=== PATIENT | female | born 1945 | race Caucasian/White ===

== ENCOUNTER → 2016-06-05 | Outpatient (CLI) | payer MEDICARE ==
--- NOTE | 2016-06-05 11:51 | MM ---
Reason for exam: follow-up at short interval from prior study. Last mammogram was performed 6 months ago. History: Patient is postmenopausal. Stereotactic core biopsy of the left breast, December 2014. Taking estrogen for 20 years. Physical Findings: Nurse did not find any significant physical abnormalities on exam. MG Diagnostic Mammo LT w CAD CC and MLO view(s) were taken of the left breast. Prior study comparison: December 06, 2015, bilateral MG 3d diag mammo w/cad AWA. December 13, 2014, left breast MG work up mamm w CAD LT. December 04, 2014, bilateral MG screening mammo w CAD. December 01, 2013, bilateral MG screening mammo w CAD. There are scattered fibroglandular densities. Finding #1: Architectural distortion in the left breast consistent with known excisional biopsy. Finding #2: There are typically benign round, regional calcifications in the left breast. These results were verbally communicated with the patient and result sheet given to the patient on 06/05/16. ASSESSMENT: Benign, BI-RAD 2 RECOMMENDATION: Routine screening mammogram of both breasts in 6 months. Back on schedule.
== END | disposition home or self-care (01) ==
LOC: RADMAMWWP 10:44
PROVIDERS: ATTEND Internal Medicine Sleep Medicine
DX: N60.02 Solitary cyst of left breast (principal)

== ENCOUNTER 2017-07-23 06:11 | Day surgery (SDC) | payer MEDICARE ==
[2017-07-22 11:39] VITALS: BMI 47.2
[2017-07-23] MEDS ORDERED: SODIUM CHLORIDE 0.9% 1,000 ML IV SCH (06:29)
[2017-07-23] MEDS ORDERED: LACTATED RINGERS 1,000 ML IV SCH (06:29)
[2017-07-23 07:00] VITALS: TEMP 97.9
[2017-07-23 07:22] LABS: Anion Gap 12 mmol/L; Calcium 9.4 mg/dL (8.4-10.2); Carbon Dioxide 26 mmol/L (22-30); Chloride 103 mmol/L (98-107); Glucose 100 mg/dL (74-99); Sodium 141 mmol/L (137-145)
[2017-07-23 07:23] LABS: Potassium 4.6 mmol/L (3.5-5.1)
[2017-07-23 07:24] LABS: Blood Urea Nitrogen 19 mg/dL (7-17)
[2017-07-23] MEDS ORDERED: PROPOFOL 10 MG/ML 20 ML VIAL IV ONE (07:24)
[2017-07-23] MEDS ORDERED: LIDOCAINE 1% INJ 10MG/ML (20 ML MDV) ONE (07:24)
--- NOTE | 2017-07-23 08:02 | CE ---
CARDIAC ELECTROPHYSIOLOGY REPORT DATE OF SERVICE: 07/23/2017 PROCEDURE: Electrical cardioversion. PERFORMED BY: Dr. True Ojeda. CLINICAL INFORMATION: Mrs. Natasha Porter is a 72-year-old lady with history of hypertension and atrial fib which was relatively recent onset. The rate control was achieved and she was started also on amiodarone and was adequately anticoagulated with Eliquis 5 mg b.i.d. and brought in for an elective electrical cardioversion. Risks, benefits, options and rationale were explained. PROCEDURE NOTE: Under the influence of ultra short-acting intravenous anesthetic agent with the anesthesiologist in attendance, an initial shock of 200 joules was delivered with anterior and posterior patches. The patient remained in atrial fib and a subsequent second shock was delivered at 250 joules. She did not convert to sinus rhythm. This was therefore an unsuccessful cardioversion. The patient was neurologically intact and hemodynamically stable with good oxygen saturation. The results were discussed with the patient and family. We will treat her with rate control and anticoagulation and she will be discharged later on today. Patient will be evaluated after she is up and about. Once she has ambulated and has had a meal she will be discharged. This was an unsuccessful cardioversion. MMODL / IJN: [id number] /
--- NOTE | 2017-07-23 08:08 | CE ---
CARDIAC ELECTROPHYSIOLOGY REPORT July 23, [address] Amato: Thank you for the opportunity to participate in the care of Mrs. Natasha Porter. This lady had electrical cardioversion which was unsuccessful. We will therefore pursue rate control and anticoagulation. Thank you for your referral and please call for questions. With kindest regards. Sincerely yours, MD ALEJANDRO Juarez / JOSEPHN: [id number] /
[2017-07-23 08:16] VITALS: RESP 18
[2017-07-23 08:40] VITALS: BP 143/69
[2017-07-23 09:07] VITALS: PULSE 70
--- NOTE | 2017-07-23 10:50 | LTR ---
July 23, [address] Amato: Thank you for the opportunity to participate in the care of Mrs. Natasha Porter. This lady had electrical cardioversion which was unsuccessful. We will therefore pursue rate control and anticoagulation. Thank you for your referral and please call for questions. With kindest regards. Sincerely yours, MD ALEJANDRO Juarez / SAMMIE: [id number] /
== END 2017-07-23 09:40 | disposition home or self-care (01) ==
LOC: CATHCVL 06:11
PROVIDERS: ATTEND Internal Medicine Interventional Cardiology
DX: I48.91 Unspecified atrial fibrillation (principal); I10 Essential (primary) hypertension; E03.9 Hypothyroidism, unspecified; Z79.899 Other long term (current) drug therapy; L30.9 Dermatitis, unspecified; Z79.01 Long term (current) use of anticoagulants; Z79.890 Hormone replacement therapy; Z82.49 Family history of ischemic heart disease and other diseases of the circulatory system
CPT/HCPCS: 92960; 80048; J2001; J2704

== ENCOUNTER → 2018-01-21 | Outpatient (CLI) | payer MEDICARE ==
--- NOTE | 2018-01-21 11:55 | CONS ---
CONSULTATION DATE OF SERVICE: 01/21/2018 A 72-year-old lady who has been evaluated in the [facility] for possible obstructive sleep apnea-hypopnea syndrome. HISTORY OF PRESENT ILLNESS/SLEEP-WAKE EVALUATION: Patient usual sleep schedule from around 9 p.m. until 4- 5 a.m. Usually no problems with falling asleep. No TV in bedroom. Patient usually sleeps with her on the side position. According to her she snores and she wakes up from sleep around 1 am for the nocturia and then she goes back to bed and falling asleep again. During the day she may fall asleep, she takes 1 nap afternoon with 2 caffeinated beverages during the day. [place] Sleepiness Scale is 5. PAST MEDICAL HISTORY: Positive for atrial fibrillation diagnosed in May of 2017 after the patient underwent several cardiac ablation procedures, but continued to have atrial fibrillation. Cardiac cath is negative for coronary artery disease. Hypertension, hypothyroidism, history of iron deficiency in the past. PAST SURGICAL HISTORY: Total hysterectomy, cholecystectomy. MEDICATIONS: Metoprolol, Eliquis, losartan with hydrochlorothiazide, flaxseed oral, Premarin, Synthroid, calcium supplement. SOCIAL HISTORY: Negative for smoking or using alcohol. FAMILY HISTORY: Hypertension, heart problems, snoring, thyroid problems. PHYSICAL EXAM: During physical exam, a lady without distress. BP 129/81, HR 87, RR 16, height 5, 4, weight 278.4, body mass index 47.5, temperature 97.4, oxygen saturation at room 97%. OROPHARYNX: Short distance between soft palate and posterior pharyngeal wall, vertically position of soft palate practically normal. HEART: S1, S2 irregular, regular. ABDOMEN: Obese. Neck Supple, no JVD. Thyroid is not palpable. LUNGS Clear to percussion and to auscultation. Good air exchange. No wheezing or rhonchi. EXTREMITIES No clubbing or cyanosis. [employer] Awake, alert, and oriented X3. Cranial nerves 2 to 7 intact. There is no fasciculation or atrophy. noted. No focal deficits observed. IMPRESSION: 1. Snoring, awakenings from sleep with nocturia, short distance between soft palate and posterior pharyngeal wall, obesity. Patient takes naps in the afternoon; possible obstructive sleep apnea-hypopnea syndrome. 2. Obesity, body mass index 47.5. 3. Atrial fibrillation. Patient continued to have atrial fibrillation after several cardiac ablation procedures. 4. Hypertension. 5. Hypothyroidism. 6. History of iron deficiency in the past. 7. Status post total hysterectomy. 8. Status post cholecystectomy. 9. History of chronic dermatitis. PLAN: 1. Polysomnography for evaluation of patient's breathing during sleep. 2. CPAP/BiPAP titration if sleep study confirms obstructive sleep apnea-hypopnea syndrome. 3. Preferable position during sleep on the side. 4. No driving if patient feels any sleepiness. 5. I will see patient for follow up visit to explain results of testing and following plan. Thank you very much for referring this patient for consultation. Sincerely, Olvin Wilder MD, PhD, FAASM Diplomat of [place] [employer] [place] [employer] Super[employer] [facility] [place] MMODL / IJN: [id number] /
== END | disposition home or self-care (01) ==
LOC: SLEEP 10:24
PROVIDERS: ATTEND Internal Medicine
DX: R06.83 Snoring (principal); E66.9 Obesity, unspecified; I48.91 Unspecified atrial fibrillation; I10 Essential (primary) hypertension; E03.9 Hypothyroidism, unspecified; Z68.42 Body mass index [BMI] 45.0-49.9, adult; Z90.49 Acquired absence of other specified parts of digestive tract; Z90.710 Acquired absence of both cervix and uterus; Z87.2 Personal history of diseases of the skin and subcutaneous tissue; Z79.01 Long term (current) use of anticoagulants; Z79.899 Other long term (current) drug therapy
CPT/HCPCS: 99211

== ENCOUNTER 2018-04-12 11:28 | Inpatient (IN) | payer MEDICARE ==
[2018-04-12 17:13] LABS: Basophils # (A) 0.1 k/uL (0-0.2); Basophils % (A) 1 %; Eosinophils # (A) 0.1 k/uL (0-0.7); Eosinophils % (A) 1 %; HCT 41.7 % (34.0-46.0); HGB 13.7 gm/dL (11.4-16.0); Lymphocytes # (A) 2.6 k/uL (1.0-4.8); Lymphocytes % (A) 26 %; MCH 32.1 pg (25.0-35.0); MCHC 32.9 g/dL (31.0-37.0); MCV 97.4 fL (80.0-100.0); Mean Platelet Volume 8.5; Monocytes # (A) 0.5 k/uL (0-1.0); Monocytes % (A) 5 %; Neutrophils # (A) 6.6 k/uL (1.3-7.7); Neutrophils % (A) 65 %; Platelet Count 253 k/uL (150-450); RBC 4.28 m/uL (3.80-5.40); RDW 13.2 % (11.5-15.5); WBC 10.1 k/uL (3.8-10.6)
[2018-04-12 17:19] LABS: Prothrombin Time 10.6 sec (9.0-12.0)
[2018-04-12] MEDS ORDERED: MAGNESIUM SULFATE-D5W PMX 1 GM in DEXTROSE/WATER 1 100ML.BAG IVPB ONE (17:22)
[2018-04-12 17:24] LABS: Anion Gap 6 mmol/L; Blood Urea Nitrogen 16 mg/dL (7-17); Calcium 9.4 mg/dL (8.4-10.2); Carbon Dioxide 30 mmol/L (22-30); Chloride 103 mmol/L (98-107); Glucose 90 mg/dL (74-99); Magnesium 1.7 mg/dL (1.6-2.3); Potassium 4.5 mmol/L (3.5-5.1); Sodium 139 mmol/L (137-145)
[2018-04-12] MEDS ORDERED: DOFETILIDE 250 MCG CAP PO ONE (18:00)
[2018-04-12] MEDS: SPIRONOLACTONE 25 MG TAB PO SCH (18:32)
--- NOTE | 2018-04-12 18:35 | P.HPCAR ---
History of Present Illness This is Dr. Andres dictating an admission note on this patient The patient was interviewed and examined by me IMPRESSION / ASSESSMENT: Symptomatic persistent atrial fibrillation Failed treatment with amiodarone and electrical cardioversion the past Amiodarone has been discontinued for several months now Cardio myopathy, globally reduced LV systolic function, left ventricle ejection fraction 45% Creatinine clearance of 60 Increased BMI Hypertension Never smoker Low magnesium levels currently and in the past PLAN: Initiation of dofetilide as an inpatient, 250 g twice daily and follow dofetilide protocol with ECGs and daily BMP and magnesium A. fib ablation/pulmonary vein isolation IV magnesium 1 dose today Spironolactone 25 mg by mouth daily and I will increase it further to 50 g by mouth daily Hydrochlorothiazide has been discontinued almost 5 to 7 days back Continue losartan Continue metoprolol Continue the ELIQUIS uninterrupted, 5 mg twice daily HPI Patient complains of tiredness and fatigue and lack of energy. She does have a history of sleep apnea and uses CPAP mask She has reduced LV systolic function during atrial fibrillation and she has failed electrical cardioversion in the past Amiodarone was discontinued several months back She is undergone coronary angiography and am awaiting the report from [facility] ROS: No fever chills or rigors, no cough, phlegm or expectoration, no nausea, vomiting or diarrhea, no hematuria, dysuria, no musculoskeletal complaints, no strokes or seizures, no skin lesions. EXAMINATION: Afebrile 97.8F, pulse rate in the 60s, blood pressure 120/85 mmHg Breath sounds are reduced bilaterally Mild kyphosis Heart sounds are irregular no murmurs or gallops or rub Abdomen is soft nontender Extremities are warm no edema REVIEW OF LABS, ECG & MEDICAL DATA Creatinine clearance 60 Hemoglobin 13.7, potassium 4.5, magnesium 1.7 Twelve-lead ECG shows atrial fibrillation with a controlled ventricular response absolute QT interval of less than 420 ms Physical Exam Vitals: Vital Signs Temp Pulse Resp BP Pulse Ox 04/12/18 16:00 97.8 F 65 18 120/85 96 Intake and Output 04/12/18 04/12/18 04/12/18 06:59 14:59 22:59 Intake Total 360 Balance 360 Intake: Oral 360 Other: Weight 129 kg Past Medical History Past Medical History: Hypertension, Skin Disorder, Thyroid Disorder Additional Past Medical History / Comment(s): Atopic Dermatitis, "heart skipping beats, I had no idea, don't feel anything." History of Any Multi-Drug Resistant Organisms: None Reported Past Surgical History: Cholecystectomy, Hysterectomy Additional Past Surgical History / Comment(s): Fatty tumor removed from left breast Past Anesthesia/Blood Transfusion Reactions: Postoperative Nausea & Vomiting ( PONV) Past Psychological History: No Psychological Hx Reported Smoking Status: Never smoker Past Alcohol Use History: None Reported Past Drug Use History: None Reported - Past Family History Son(s) Family Medical History: Cancer Additional Family Medical History / Comment(s): Brain cancer Physical Examination Vital Signs Temp Pulse Resp BP Pulse Ox 04/12/18 16:00 97.8 F 65 18 120/85 96 Intake and Output 04/12/18 04/12/18 04/12/18 06:59 14:59 22:59 Intake Total 360 Balance 360 Intake: Oral 360 Other: Weight 129 kg Results 04/12/18 16:59 04/12/18 16:59 Coagulation 04/12/18 Range/Units 16:59 PT 10.6 (9.0-12.0) sec CBC 04/12/18 Range/Units 16:59 WBC 10.1 (3.8-10.6) k/uL RBC 4.28 (3.80-5.40) m/uL Hgb 13.7 (11.4-16.0) gm/dL Hct 41.7 (34.0-46.0) % Plt Count 253 (150-450) k/uL Comprehensive Metabolic Panel 04/12/18 Range/Units 16:59 Sodium 139 (137-145) mmol/L Potassium 4.5 (3.5-5.1) mmol/L Chloride 103 (98-107) mmol/L Carbon Dioxide 30 (22-30) mmol/L BUN 16 (7-17) mg/dL Creatinine 0.74 (0.52-1.04) mg/dL Glucose 90 (74-99) mg/dL Calcium 9.4 (8.4-10.2) mg/dL Current Medications Generic Name Dose Route Start Last Admin Trade Name Freq PRN Reason Stop Dose Admin Apixaban 5 mg 04/12/18 21:00 Eliquis PO BID SARA Levothyroxine Sodium 125 mcg 04/12/18 21:00 Synthroid PO HS SARA Losartan Potassium 100 mg 04/13/18 09:00 Cozaar PO DAILY [facility] Magnesium Oxide 400 mg 04/13/18 15:00 Mag-Ox PO DAILY@1500 [facility] Metoprolol Tartrate 25 mg 04/13/18 12:00 Lopressor PO DAILY@1200 [facility] Metoprolol Tartrate 50 mg 04/12/18 21:00 Lopressor PO BID@0900,2100 [facility] Nystatin 1 applic 04/12/18 21:00 Mycostatin Powder TOPICAL BID [facility] Spironolactone 25 mg 04/12/18 18:00 04/12/18 18:32 Aldactone PO 25 mg DAILY [facility] Administration Intake and Output 04/12/18 04/12/18 04/12/18 06:59 14:59 22:59 Intake Total 360 Balance 360 Intake: Oral 360 Other: Weight 129 kg Patient Weight 04/13/18 06:59 Weight 129 kg 04/12/18 16:59 04/12/18 16:59
[2018-04-12] MEDS ORDERED: SODIUM CHLORIDE 0.9% 1,000 ML IV SCH (18:45)
[2018-04-12] MEDS: APIXABAN 5 MG TAB PO SCH (21:03)
[2018-04-12] MEDS: METOPROLOL TARTRATE 50 MG TAB PO SCH (21:03)
[2018-04-12] MEDS: LEVOTHYROXINE 125 MCG TAB PO SCH (21:03)
[2018-04-12] MEDS: NYSTATIN 100,000 UNIT/GM POWD 15 GM TOPICAL SCH (22:51)
[2018-04-13] MEDS ORDERED: DOFETILIDE 250 MCG CAP PO ONE (06:00)
[2018-04-13 06:05] LABS: Glucose,Whole Blood 92 mg/dL (75-99)
[2018-04-13 06:31] LABS: Anion Gap 8 mmol/L; Blood Urea Nitrogen 16 mg/dL (7-17); Calcium 8.9 mg/dL (8.4-10.2); Carbon Dioxide 26 mmol/L (22-30); Chloride 103 mmol/L (98-107); Glucose 91 mg/dL (74-99); Magnesium 1.8 mg/dL (1.6-2.3); Potassium 4.5 mmol/L (3.5-5.1); Sodium 137 mmol/L (137-145)
[2018-04-13] MEDS: APIXABAN 5 MG TAB PO SCH ×2 (09:33→20:18)
[2018-04-13] MEDS: LOSARTAN 50 MG TAB PO SCH (09:33)
[2018-04-13] MEDS: METOPROLOL TARTRATE 50 MG TAB PO SCH ×2 (09:34→20:17)
[2018-04-13] MEDS: SPIRONOLACTONE 25 MG TAB PO SCH (09:36)
[2018-04-13] MEDS: NYSTATIN 100,000 UNIT/GM POWD 15 GM TOPICAL SCH ×2 (09:37→22:32)
[2018-04-13] MEDS ORDERED: ePHEDrine SULFATE/0.9% NACL/PF 50 MG/5 ML SYRINGE IV ONE (14:15)
[2018-04-13] MEDS ORDERED: PROTAMINE SULFATE 10 MG/ML 5 ML VIAL IV ONE (14:15)
[2018-04-13] MEDS ORDERED: LIDOCAINE 1% INJ 10MG/ML (20 ML MDV) ONE (14:15)
[2018-04-13] MEDS ORDERED: SUCCINYLCHOLINE CHLORIDE 100 MG/5 ML SYR IV ONE (14:15)
[2018-04-13] MEDS ORDERED: MIDAZOLAM 2 MG/2 ML VIAL ONE (14:15)
[2018-04-13] MEDS ORDERED: PROPOFOL 10 MG/ML 20 ML VIAL IV ONE (14:15)
[2018-04-13] MEDS ORDERED: fentaNYL (PF) 50 MCG/ML 2 ML AMP ONE (14:15)
[2018-04-13] MEDS ORDERED: HEPARIN SODIUM,PORCINE 10,000 UNIT/ML 1 ML VIAL ONE (14:15)
[2018-04-13] MEDS ORDERED: MAGNESIUM OXIDE 400 MG TAB PO SCH (15:00)
[2018-04-13] MEDS ORDERED: HYDROcodone/APAP 5-325MG 1 EACH TAB PO PRN (17:42)
[2018-04-13] MEDS ORDERED: ACETAMINOPHEN TAB 325 MG TAB PO PRN (17:42)
[2018-04-13] MEDS ORDERED: ACETAMINOPHEN IV (For NPO) 1,000 MG in EMPTY BAG 1 BAG IVPB ONE (17:42)
--- NOTE | 2018-04-13 18:06 | P.PCN ---
Preoperative Diagnosis: Diagnosis Atrial fibrillation, persistent, symptomatic, refractory to therapy Result Successful pulmonary vein isolation of all veins using cryo-ablation Complete entrance block in all 4 veins confirmed No evidence for phrenic nerve injury Ablation of the interatrial septum on the left side, Esophageal deflection YES Electrical cardioversion with a synchronized shock across the chest YES 360 J biphasic, successful Procedure details Patient was brought to the EP lab in a fasting state. Written informed consent was obtained prior to the procedure. Procedure performed under general anesthesia After initial muscle relaxant use, muscle relaxants were not given thereafter in order to assess phrenic nerve during procedure. Patient prepped and draped as per protocol Full cryo-set up with standard preparation of the cryoablation tools done. Femoral Venous access obtained on the right and left groins Venous and arterial Sheaths placed. Diagnostic catheters for the high right atrium, phrenic nerve stimulation and pacing, His bundle, RV and coronary sinus placed Intracardiac echo catheter placed. Long sheath placed in the right atrium Left and right transseptal catheterization performed under intracardiac echo guidance. Intravenous heparin with aCT above 300 Later, catheter positioning and balloon positioning in the left atrium, under intracardiac echo guidance Baseline measurements Sinus cycle length 1248 ms, FL 151, QRS 76 and QT interval greater than 500 ms HV interval 30 ms Atrial pacing performed from the high right atrium and the coronary sinus RV pacing Transseptal catheterization performed RA pressure 26/10/18 LA pressure 30/8/17 Transseptal catheterization performed with standard sheath. The cryoablation sheath was then placed with an over the wire exchange without any acute complications. All 4 pulmonary veins were isolated in the following sequence: Left superior followed by left inferior followed by right superior followed by right inferior The cryo-ablation balloon was placed at the os of each vein 1.5 mL of IV dye was injected to confirm an occluded vein Goal during cryoablation was to achieve complete occlusion of the pulmonary vein , achieve -30C at 30 seconds and achieve -40C at 60 seconds and a time to affect of less than 60-90 seconds, . If not the balloon was repositioned to obtain this result After completion of Cryoblation with durations from 180-240 seconds, entrance block was confirmed with the Attain circular catheter in a roving fashion around the antrum of the pulmonary veins Phrenic nerve pacing was performed from the SVC, right innominate vein area and diaphragm voltage was monitored. Diaphragmatic contractions were also monitored manually for strength of contraction. Parameter goals for each cryo freeze -30 C by 30 seconds -40 degrees C by 60 seconds Minimum between minus 40-55C Thaw time greater than 10 seconds Balloon visualized by intracardiac echo The esophagus was intubated. Esophageal Temperature monitoring with a CIRCA catheter formed. Esophageal deflection for hypothermia of the esophagus below 32C Left superior pulmonary vein and Left inferior pulmonary veins The patient had a very large common and left sided pulmonary venous os region bifurcated into a very large left superior and left inferior pulmonary veins The common loss and even the veins were larger in diameter in the 28 mm cryo balloon used. Therefore the ostium was isolated at an antral level, in a segmental fashion Brief Cryoblation's were also applied within the ostium of the pulmonary vein Complete isolation was achieved in the pulmonary veins Cryoablation was also performed on the left side of the roof outside the left superior pulmonary vein Right superior pulmonary vein, during phrenic nerve pacing Three-minute lesion resultant complete isolation within less than 60 seconds Right inferior pulmonary vein, during phrenic nerve pacing Difficult positioning of the balloon on account of the large size of the right inferior pulmonary vein However plate isolation was ultimately achieved At the end of the procedure the Achieve catheter was once again used to check for entrance block Phrenic nerve stimulation was performed to confirm diaphragmatic stimulation the end of the procedure Cine fluoroscopy was performed at the very end of the procedure to confirm movement of both diaphragms with inspiration and expiration At the end of the procedure the patient was extubated Heparin was reversed Venous sheaths were removed and hemostasis assured Procedures performed (PVI - CRYO Ablation) Comprehensive diagnostic EP study CS pacing and recording Left and right transseptal catheterization Catheter the mapping of the tachycardia (NOT 3D mapping) Intracardiac echocardiography Pulmonary vein isolation with transseptal and comprehensive EPS, 36815 Electrical cardioversion with a synchronized shock across the chest 40402 Ablation of the left-sided septum near fossa ovalis and right inferior pulmonary vein, 87016
[2018-04-13] MEDS: METOPROLOL TARTRATE 25 MG TAB PO SCH (19:51)
[2018-04-13] MEDS: MAGNESIUM OXIDE 400 MG TAB PO SCH (20:17)
[2018-04-13] MEDS: LEVOTHYROXINE 125 MCG TAB PO SCH (20:18)
[2018-04-14] MEDS ORDERED: DOFETILIDE 125 MCG CAP PO ONE ×2 (06:00→18:00)
[2018-04-14 06:22] LABS: Anion Gap 6 mmol/L; Blood Urea Nitrogen 16 mg/dL (7-17); Calcium 8.8 mg/dL (8.4-10.2); Carbon Dioxide 28 mmol/L (22-30); Chloride 103 mmol/L (98-107); Glucose 101 mg/dL (74-99); Magnesium 1.9 mg/dL (1.6-2.3); Potassium 4.6 mmol/L (3.5-5.1); Sodium 137 mmol/L (137-145)
[2018-04-14] MEDS: METOPROLOL TARTRATE 50 MG TAB PO SCH ×2 (09:12→20:35)
[2018-04-14] MEDS: SPIRONOLACTONE 25 MG TAB PO SCH (09:12)
[2018-04-14] MEDS: APIXABAN 5 MG TAB PO SCH ×2 (09:13→20:35)
[2018-04-14] MEDS: MAGNESIUM OXIDE 400 MG TAB PO SCH ×2 (09:13→20:35)
[2018-04-14] MEDS: LOSARTAN 50 MG TAB PO SCH (09:13)
--- NOTE | 2018-04-14 10:53 | P.PN ---
Subjective Principal diagnosis: Patient is doing well post cryoablation of the pulmonary veins She has a large left common os. The common trunk is long but its diameter is significantly greater than 3 cm. The ostium of the right superior vein was also greater than 28 mm The left ostium, common, was successfully isolated with a segmental and circumferential cryoablation approach. Atrial fibrillation is in induced when the circumferential catheter was placed in the left inferior pulmonary vein ostium She also had a very large right inferior pulmonary vein was also ultimately successfully isolated The right superior vein was expeditiously isolated She denies any chest discomfort dizziness lightheadedness or palpitations today I removed the sutures groins healing well. No hematoma no bruits On examination Blood pressure 170/67 mmHg pulse rate in the 70s, afebrile Breath sounds are clear no rhonchi no crackles Heart sounds S1-S2 normal no murmurs or gallop or rub Abdomen is soft nontender No lower extremity edema Impression Persistent symptomatically atrial fibrillation associated with cardio myopathy Patient admitted for dofetilide loading. I initiated 250 g of dofetilide and she converted to sinus rhythm with a very first dose but there was prolongation of the QT interval to about 510 ms. I held dofetilide last evening and restarted at 125 g. The follow-up 3 hour ECG shows that the QT interval is stable at 430 ms. It is clearly less than 440 ms Magnesium is 1.9. I had increased dose of spironolactone and also oral magnesium Status post cryoablation of the pulmonary veins LV function in sinus rhythm, on intracardiac echo appeared preserved Suggest Continue monitoring on telemetry, dofetilide 125 g twice daily and watch QT interval Continue anticoagulation Avoid additional QT prolonging drugs Discussed with the patient Objective - Vital Signs Vital signs: Vital Signs Temp 97.8 F 04/14/18 09:19 Pulse 74 04/14/18 09:19 Resp 18 04/14/18 09:19 BP 117/67 04/14/18 09:19 Pulse Ox 98 04/14/18 09:19 Intake & Output 04/13/18 04/14/18 04/14/18 18:59 06:59 18:59 Intake Total 10 Balance 10 Weight 128.2 kg Intake: IV 10 0.9 10 Other: Voiding Method Toilet Toilet # Voids 1 3 - Labs CBC & Chem 7: 04/12/18 16:59 04/14/18 05:40 Labs: Abnormal Lab Results - Last 24 Hours (Table) 04/14/18 Range/Units 05:40 Glucose 101 H (74-99) mg/dL
[2018-04-14] MEDS: METOPROLOL TARTRATE 25 MG TAB PO SCH (12:36)
[2018-04-14] MEDS: NYSTATIN 100,000 UNIT/GM POWD 15 GM TOPICAL SCH ×2 (16:07→20:35)
[2018-04-14] MEDS ORDERED: MAGNESIUM SULFATE-D5W PMX 1 GM in DEXTROSE/WATER 1 100ML.BAG IVPB ONE (18:16)
[2018-04-14] MEDS: LEVOTHYROXINE 125 MCG TAB PO SCH (20:35)
[2018-04-15] MEDS ORDERED: DOFETILIDE 125 MCG CAP PO STA ×3 (05:19→18:58)
[2018-04-15 07:03] LABS: Anion Gap 7 mmol/L; Blood Urea Nitrogen 15 mg/dL (7-17); Calcium 9.2 mg/dL (8.4-10.2); Carbon Dioxide 27 mmol/L (22-30); Chloride 105 mmol/L (98-107); Glucose 95 mg/dL (74-99); Magnesium 1.7 mg/dL (1.6-2.3); Potassium 4.5 mmol/L (3.5-5.1); Sodium 139 mmol/L (137-145)
[2018-04-15] MEDS: APIXABAN 5 MG TAB PO SCH ×2 (09:09→22:13)
[2018-04-15] MEDS: METOPROLOL TARTRATE 50 MG TAB PO SCH ×2 (09:09→22:13)
[2018-04-15] MEDS: LOSARTAN 50 MG TAB PO SCH (09:09)
[2018-04-15] MEDS: MAGNESIUM OXIDE 400 MG TAB PO SCH ×2 (09:09→22:13)
[2018-04-15] MEDS: SPIRONOLACTONE 25 MG TAB PO SCH (09:09)
[2018-04-15] MEDS: NYSTATIN 100,000 UNIT/GM POWD 15 GM TOPICAL SCH ×2 (09:11→22:13)
[2018-04-15] MEDS ORDERED: DUPIXENT SQ ONE (13:00)
--- NOTE | 2018-04-15 14:12 | P.PN ---
Subjective Patient is doing well she looks comfortable she has no dizziness lightheadedness no chest pain she does ambulate in the hallways groins have healed well there is no hematoma no swelling she remains in sinus rhythm on dofetilide 125 g twice daily I reviewed the ECG from last evening and this morning post dofetilide administration Absolute QT interval 440 ms Labs reviewed telemetry strips reviewed no ventricular arrhythmias no atrial fibrillation She is status post cryoablation of the pulmonary veins with a very large left common os Potassium 4.5, kidney function stable BUN 15 creatinine 0.68 and magnesium 1.7 despite spironolactone 50 mg daily multiple dose of IV magnesium and oral magnesium Vitals are stable afebrile 98.3F, blood pressure 123/57 mmHg pulse rate in the 70s Head and neck examination normal Normal heart sounds normal S1 normal S2 no rub Breath sounds are clear no rhonchi no cracklesair entry bilaterally on account of body habitus Abdomen soft Extremities are warm No hematoma tenderness in both groins Impression Persistent symptomatic atrial fibrillation associated with cardiomyopathy, A. fib related, nonischemic Improvement in LV systolic function while in sinus rhythm Status post successful isolation of the pulmonary veins of cryoablation Very large left common loss size much greater than 3 cm. Even the ostia of both the left-sided veins were larger than 28 mm Very large right inferior pulmonary vein Pulmonary veins were isolated circumferentially and segmentally Dofetilide was initiated initially at 250 g but there was prolongation of the QT interval will although she converted with the first dose of dofetilide Since then she's been on 125 g twice daily and the QT interval has been stable and on the 440 ms Suggest Reduce metoprolol to 50 g twice daily Oral magnesium dose has been doubled Spironolactone 50 mg by mouth daily Continue anticoagulation If the QT interval is stable she will be discharged home tomorrow and follow Dr. Ojeda in a week I will see her again in about 4-5 months for dofetilide follow-up Objective - Vital Signs Vital signs: Vital Signs Temp 98.3 F 04/15/18 12:00 Pulse 72 04/15/18 12:00 Resp 20 04/15/18 12:00 BP 123/57 04/15/18 12:00 Pulse Ox 94 L 04/15/18 12:00 Intake & Output 04/14/18 04/15/18 04/15/18 18:59 06:59 18:59 Intake Total 840 250 Balance 840 250 Weight 128.5 kg Intake: IV 10 0.9 10 Oral 840 240 Other: Voiding Method Toilet # Voids 1 3 # Bowel Movements 0 - Labs CBC & Chem 7: 04/12/18 16:59 04/15/18 05:47
[2018-04-15] MEDS: LEVOTHYROXINE 125 MCG TAB PO SCH (22:13)
[2018-04-16] MEDS ORDERED: DOFETILIDE 125 MCG CAP PO ONE (05:30)
[2018-04-16 07:07] LABS: Anion Gap 5 mmol/L; Blood Urea Nitrogen 14 mg/dL (7-17); Calcium 9.5 mg/dL (8.4-10.2); Carbon Dioxide 28 mmol/L (22-30); Chloride 105 mmol/L (98-107); Glucose 94 mg/dL (74-99); Magnesium 1.5 mg/dL (1.6-2.3); Potassium 4.7 mmol/L (3.5-5.1); Sodium 138 mmol/L (137-145)
[2018-04-16] MEDS: APIXABAN 5 MG TAB PO SCH (08:33)
[2018-04-16] MEDS: METOPROLOL TARTRATE 50 MG TAB PO SCH (08:34)
[2018-04-16] MEDS: LOSARTAN 50 MG TAB PO SCH (08:34)
[2018-04-16] MEDS: MAGNESIUM OXIDE 400 MG TAB PO SCH (08:34)
[2018-04-16] MEDS: SPIRONOLACTONE 25 MG TAB PO SCH (08:35)
[2018-04-16] MEDS: NYSTATIN 100,000 UNIT/GM POWD 15 GM TOPICAL SCH (08:40)
[2018-04-16] MEDS ORDERED: ceFAZolin 2,000 MG in DEXTROSE/WATER 1 50ML.BAG IVPB STA (09:41)
[2018-04-16] MEDS ORDERED: ceFAZolin IN SWFI 2 GM/20 ML SYRINGE IVP STA (09:46)
[2018-04-16 10:18] VITALS: RESP 18
[2018-04-16 11:55] VITALS: BP 130/71; PULSE 75; TEMP 97.6
--- NOTE | 2018-04-16 13:02 | P.DS ---
Providers Date of admission: 04/12/18 14:08 Attending physician: Shubham Andres Primary care physician: Saúl Lara Eleanor Slater Hospital Course: Patient is doing very well. She is sitting comfortably in bed. She's been ablating the hallways. She has recovered very well after the pulmonary vein isolation. She is maintaining sinus rhythm now No chest discomfort dizziness lightheadedness no headache or dizziness no palpitations groins of healed well afebrile throat is improved On examination vitals are stable blood pressure 130/71 mmHg pulse rate in the 70s afebrile 97.6F Normal heart sounds are normal S1 normal S2 Breath sounds are clear no rhonchi no crackles Abdomen is soft nontender Groins have healed well no hematoma Extended is warm no edema Labs are reviewed sodium 138 potassium 4.7 BUN 14 creatinine 0.63 GFR greater than 90 magnesium 1.5 despite oral magnesium as well as IV magnesium Twelve-lead ECG on dofetilide was reviewed. 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 Failed amiodarone in the past and has discontinued amiodarone for several months now new appropriate regulated elevated JERRY VASC or Status post cryoablation of the pulmonary veins Very large left common os and even individual pulmonary venous os were larger than the 28th millimeter balloon Isolation of all veins successful Prolonged QT interval on 250 g of dofetilide Currently on dofetilide 125 g twice daily QT interval stable Plan Discharge home today on anticoagulation dofetilide 125 g twice daily spironolactone 50 g by mouth daily double the dose of oral magnesium, hydroxide 400 mg twice daily, reduced dose of metoprolol of 50 g twice daily and other medications Add a very detailed discussion with her regarding the dose and don'ts of dofetilide use. I went through the entire education protocol/process and explained the entire dofetilide plan to her in detail. I had her on the phone on speaker phone. She understood the issues with dofetilide and how to manage it She will see Dr. Ojeda in about 1-2 weeks I would like to see her again in about 3-4 months She understands that she will see me at least twice a year for dofetilide. Prior BMP and magnesium will be performed and an EKG at that time to check QT interval prior to prescribing dofetilide in the future Plan - Discharge Summary New Discharge Prescriptions: New Cephalexin [Keflex] 500 mg PO TID #21 cap Dofetilide [Tikosyn] 125 mcg PO Q12HR #60 cap Magnesium Oxide [Mag-Ox] 400 mg PO BID #60 tablet RX: Spironolactone 50 mg PO DAILY #30 tablet RX: Metoprolol Tartrate [Lopressor] 50 mg PO BID #180 tab Discontinued RX: Metoprolol Tartrate 25 mg PO DAILY@1200 RX: Magnesium 750 mg PO DAILY@1500 Metoprolol Tartrate [Lopressor] 50 mg PO BID@0900,2100 No Action RX: Folic Acid 0.4 mg PO DAILY@1500 Apixaban [Eliquis] 5 mg PO BID RX: Levothyroxine Sodium 125 mcg PO HS Estrogens, Conjugated [Premarin] 1.25 mg PO HS Calcium Carbonate [Calcium] 1,200 mg PO HS Dupilumab [Dupixent] 300 mg SQ TH Flaxseed Oil 1,200 mg PO DAILY Ascorbic Acid [Vitamin C] 500 mg PO DAILY@1500 Losartan [Cozaar] 100 mg PO DAILY Discharge Medication List Apixaban [Eliquis] 5 mg PO BID 07/22/17 [History] Calcium Carbonate [Calcium] 1,200 mg PO HS 07/22/17 [History] Dupilumab [Dupixent] 300 mg SQ TH 07/22/17 [History] Estrogens, Conjugated [Premarin] 1.25 mg PO HS 07/22/17 [History] RX: Folic Acid 0.4 mg PO DAILY@1500 07/22/17 [History] RX: Levothyroxine Sodium 125 mcg PO HS 07/22/17 [History] Ascorbic Acid [Vitamin C] 500 mg PO DAILY@1500 04/12/18 [History] Flaxseed Oil 1,200 mg PO DAILY 04/12/18 [History] Losartan [Cozaar] 100 mg PO DAILY 04/12/18 [History] Cephalexin [Keflex] 500 mg PO TID #21 cap 04/16/18 [Rx] Dofetilide [Tikosyn] 125 mcg PO Q12HR #60 cap 04/16/18 [Rx] Magnesium Oxide [Mag-Ox] 400 mg PO BID #60 tablet 04/16/18 [Rx] RX: Metoprolol Tartrate [Lopressor] 50 mg PO BID #180 tab 04/16/18 [Rx] RX: Spironolactone 50 mg PO DAILY #30 tablet 04/16/18 [Rx] Follow up Appointment(s)/Referral(s): Linnette Ojeda MD [STAFF PHYSICIAN] - 05/05/18 1:30 pm (Previous follow up appointment.) Saúl Amato MD [Primary Care Provider] - 04/20/18 1:30 pm (thursday) Patient Instructions/Handouts: Heart Healthy Diet (DC), Cardiac Ablation (DC) Activity/Diet/Wound Care/Special Instructions: Tikosyn copay is $13.50/mo One month of tikosyn and magnesium ready in [facility]. Express script RX needed for 3 month supply.
--- NOTE | 2018-04-20 08:46 | CDI ---
Documentation Clarification Form Date: 04/20/18 From: Angela Manny Hillary Mcdaniels, Communications Scientist Hours-8:30 am & 5 pm MJefry Admit Date: 04/12/2018 2:08:00 PM Patient Name: Natasha Porter Visit Number: [id number] Discharge Date: 04/16/2018 2:03:00 PM ATTENTION: The Clinical Documentation Specialists (CDI) and [facility] Coding Staff appreciate your assistance in clarifying documentation. Please respond to the clarification below the line at the bottom and electronically sign. The CDI & [facility] Coding staff will review the response and follow-up if needed. Please note: Queries are made part of the Legal Health Record. If you have any questions, please contact the author of this message via ITS. Dr. Shubham Andres Per DS, she developed thrombophlebitis in the forearm. Per nursing note on 04/16- IV removed yesterday from right wrist for redness to the site. 1 dose of IV Cephalosporin given and discharged home on oral Keflex. In your professional opinion, can you please clarify the cause of the thrombophlebitis? Due to IV Not due to IV Other, please specify Unable to determine due to iv MTDD
== END 2018-04-16 14:03 | disposition home or self-care (01) | DRG 274 ==
LOC: 3SCARD 14:08
PROVIDERS: ADMIT Internal Medicine Clinical Cardiac Electrophysiology; ATTEND Internal Medicine Clinical Cardiac Electrophysiology
PROC: 02583ZZ Destruction of Conduction Mechanism, Percutaneous Approach (ICD-10-PCS; principal; 2018-04-13)
PROC: 02K83ZZ Map Conduction Mechanism, Percutaneous Approach (ICD-10-PCS; 2018-04-13)
PROC: 4A023FZ Measurement of Cardiac Rhythm, Percutaneous Approach (ICD-10-PCS; 2018-04-13)
PROC: 4A0234Z Measurement of Cardiac Electrical Activity, Percutaneous Approach (ICD-10-PCS; 2018-04-13)
PROC: 5A2204Z Restoration of Cardiac Rhythm, Single (ICD-10-PCS; 2018-04-13)
PROC: B246ZZ4 Ultrasonography of Right and Left Heart, Transesophageal (ICD-10-PCS; 2018-04-13)
DX: I48.1 Persistent atrial fibrillation (principal); T80.1XXA Vascular complications following infusion, transfusion and therapeutic injection, initial encounter; I42.9 Cardiomyopathy, unspecified; I80.8 Phlebitis and thrombophlebitis of other sites; I45.81 Long QT syndrome; I10 Essential (primary) hypertension; G47.30 Sleep apnea, unspecified; M40.209 Unspecified kyphosis, site unspecified; E07.9 Disorder of thyroid, unspecified; L20.9 Atopic dermatitis, unspecified; Z79.01 Long term (current) use of anticoagulants; Z79.890 Hormone replacement therapy; Z79.899 Other long term (current) drug therapy; Z99.89 Dependence on other enabling machines and devices; Z90.710 Acquired absence of both cervix and uterus; Z90.49 Acquired absence of other specified parts of digestive tract; Z80.8 Family history of malignant neoplasm of other organs or systems; Y84.8 Other medical procedures as the cause of abnormal reaction of the patient, or of later complication, without mention of misadventure at the time of the procedure; Y92.230 Patient room in hospital as the place of occurrence of the external cause
CPT/HCPCS: 80048; 83735; 85025; 85610

== ENCOUNTER → 2018-04-22 | Outpatient (CLI) | payer MEDICARE ==
--- NOTE | 2018-04-22 13:39 | SFUN ---
SLEEP CENTER FOLLOW UP NOTE DATE OF SERVICE: 04/22/2018 This 72-year-old lady had been followed in the sleep center for treatment of obstructive sleep apnea-hypopnea syndrome. Recently patient had diagnostic sleep study and CPAP titration and I discussed results of sleep studies with patient in detail. Diagnostic sleep study showed moderate obstructive sleep apnea. Subsequently, patient was started on treatment with CPAP. Today is her first visit after she was started on treatment with CPAP. The patient is able to use equipment every night without significant problems related to mask fitting, pressure, humidification. According to her , she sleeps better. [place] Sleepiness Scale today is 10. I checked her CPAP unit and reading from her machine. The usage is 100% of the time. Usage more than 4 hours is 83% of the time, which is normal. Average usage is 5 hours and 6 minutes. CPAP pressure is 8 cm of water. Leak is . Apnea-hypopnea index only 1.5, which is normal range. About 10 days ago, the patient was hospitalized for new episodes of atrial fibrillation. MEDICATIONS: Tikosyn, metoprolol, spironolactone, Eliquis, vitamin C, calcium supplement, levothyroxine, losartan, . PHYSICAL EXAMINATION: During physical exam, patient in no distress. VITAL SIGNS: BP 123/83, HR 78, RR 16, weight 279, temp 97.6, oxygen saturation at room air 96%. HEENT: PERRLA, EOMI. Oropharynx low position of soft palate, Mallampati 3. NECK: Supple, no JVD. Thyroid is not palpable. LUNGS: Clear to percussion and to auscultation. Good air exchange. No wheezing or rhonchi. HEART: S1, S2 regular. ABDOMEN: Obese. EXTREMITIES No clubbing or cyanosis. Dermatitis changes of the skin on the left elbow. DITTO MACHINE OPERATOR: Awake, alert, and oriented X3. Cranial nerves 2 to 7 intact. There is no fasciculation or atrophy. noted. No focal deficits observed. IMPRESSION: 1. Moderate obstructive sleep apnea-hypopnea syndrome; apnea-hypopnea index 20.9 with oxygen desaturation to 88.3% on control with CPAP at 8 cm of water. The patient demonstrated great compliance with treatment benefitting from treatment. 2. History of atrial fibrillation by auscultation, normal at present time. 3. Hypertension. 4. Hypothyroidism. 5. History of iron deficiency in the past. 6. History of dermatitis. 7. Status post total hysterectomy. 8. Status post cholecystectomy. PLAN: 1. Patient will continue to use CPAP equipment every night for the whole night. 2. We will add chinstrap because possibly patient open her mouth during the sleep, which could be the reason for significant leak. 3. Losing weight. 4. Sleep hygiene with regular time in bed for at least 8 hours. 5. No driving if feeling any sleepiness. Thank you very much for allowing me to participate in management of your patient. Sincerely, Olvin Wilder MD, PhD, FAASM Diplomat of [employer] Land Conservation Specialist of [facility] [place] MMODL / IJN: [id number] /
== END | disposition home or self-care (01) ==
LOC: SLEEP 11:17
PROVIDERS: ATTEND Internal Medicine
DX: G47.33 Obstructive sleep apnea (adult) (pediatric) (principal); I48.91 Unspecified atrial fibrillation; I10 Essential (primary) hypertension; E03.9 Hypothyroidism, unspecified; Z99.89 Dependence on other enabling machines and devices; Z79.01 Long term (current) use of anticoagulants; Z79.899 Other long term (current) drug therapy; Z90.49 Acquired absence of other specified parts of digestive tract; Z90.710 Acquired absence of both cervix and uterus; Z87.2 Personal history of diseases of the skin and subcutaneous tissue; Z86.2 Personal history of diseases of the blood and blood-forming organs and certain disorders involving the immune mechanism

== ENCOUNTER → 2018-10-21 | Outpatient (CLI) | payer MEDICARE ==
--- NOTE | 2018-10-21 11:48 | PN ---
PROGRESS NOTE DATE OF SERVICE: 10/21/2018. A 73-year-old lady who has been followed in the Sleep Center for treatment of obstructive sleep apnea-hypopnea syndrome. Patient successfully continued to use her CPAP equipment every night without significant problems related to mask fitting, pressure or indication. No snoring with the machine. [place] Sleepiness Scale is 2, which is totally normal. No episodes of cardiac arrhythmia since last visit. I checked her CPAP unit. CPAP pressure is 8 cm of water. Usage is every night and 24/30 nights for more than 4 hours of the last month. Leak is 23 L/minute, which is borderline. Apnea-hypopnea index 0.9, which is absolutely normal. MEDICATIONS: Tikosyn, metoprolol, spironolactone, Eliquis, vitamin C, levothyroxine, losartan. PHYSICAL EXAM: Patient in no distress. BP 134/65, HR 70, RR 16, height 5 foot 3 inches, weight 286 pounds, body mass index 50.4. Patient increased her weight 7 pounds since last visit. Oxygen saturation at room air 95%. OROPHARYNX: Low position of soft palate. Mallampati 3. ABDOMEN: Obese. Neck Supple, no JVD. Thyroid is not palpable. LUNGS Clear to percussion and to auscultation. Good air exchange. No wheezing or rhonchi. HEART S1, S2 regular. No murmurs, gallops, or rubs. EXTREMITIES No clubbing or cyanosis. LIQUID SUGAR FORTIFIER Awake, alert, and oriented X3. Cranial nerves 2 to 7 intact. There is no fasciculation or atrophy. noted. No focal deficits observed. IMPRESSION: 1. Moderate obstructive sleep apnea-hypopnea syndrome on full control with CPAP. Patient demonstrated great compliance with treatment, benefitting from treatment. 2. History of atrial fibrillation, normal auscultation presently. 3. Hypertension. 4. Hypothyroidism. 5. History of iron deficiency in the past. 6. Psoriasis. 7. Status post total hysterectomy. 8. Status post cholecystectomy. PLAN: 1. Patient will continue to use CPAP equipment every night for the whole night. 2. Losing weight. 3. Sleep hygiene with regular time in bed for at least 8 hours. 4. No driving if feeling sleepiness. 5. Will maintain all necessary prescriptions for nasal pillow, mask, tube, filters. Thank you very much for allowing me to participate in the management of patient. Sincerely, Olvin Wilder MD, PhD, FAASM Diplomat of [place] [employer] Specialties [employer] Board of Internal Medicine Manager Of Network of [facility] [place] MMTINY / SAMMIE: [id number] /
== END | disposition home or self-care (01) ==
LOC: SLEEP 09:48
PROVIDERS: ATTEND Internal Medicine
DX: G47.33 Obstructive sleep apnea (adult) (pediatric) (principal); I10 Essential (primary) hypertension; E03.9 Hypothyroidism, unspecified; L40.0 Psoriasis vulgaris; Z86.79 Personal history of other diseases of the circulatory system; Z86.39 Personal history of other endocrine, nutritional and metabolic disease; Z90.710 Acquired absence of both cervix and uterus; Z90.49 Acquired absence of other specified parts of digestive tract; Z79.01 Long term (current) use of anticoagulants; Z79.899 Other long term (current) drug therapy; Z99.89 Dependence on other enabling machines and devices

== ENCOUNTER → 2019-04-21 | Outpatient (CLI) | payer MEDICARE ==
--- NOTE | 2019-04-21 11:15 | SFUN ---
SLEEP CENTER FOLLOW UP NOTE DATE OF SERVICE: 04/21/2019 This 73-year-old lady who has been followed in sleep center for treatment of obstructive sleep apnea-hypopnea syndrome. The patient continued to use her CPAP equipment every night without significant problems. No snoring with the machine. No significant movements while she is using her CPAP. [place] Sleepiness Scale today is 6, which is in normal range. I checked patient's CPAP unit. CPAP pressure is 8 cm of water. Usage is 30 out of 30 nights, 28 out of 30 nights for more than 4 hours with average usage 5.2 hours per night. Leak is 10 L/minute, which is acceptable. Apnea-hypopnea index is 1.2, which is normal. MEDICATIONS: Tikosyn, metoprolol, spironolactone, Eliquis, vitamin C, levothyroxine, losartan. PHYSICAL EXAMINATION: During physical exam, patient in no distress. VITAL SIGNS: BP 115/64, HR 65, RR 16, height 5 feet 4-1/4 inches, weight 288.6 pounds, which is 2 pounds more than during last visit, temperature 97.6, oxygen saturation at room air 98%. HEENT: PERRLA, EOMI. Oropharynx low position of soft palate. Mallampati 3. NECK: Supple, no JVD. Thyroid is not palpable. LUNGS: Clear to percussion and to auscultation. Good air exchange. No wheezing or rhonchi. HEART: S1, S2 regular. No murmurs, gallops, or rubs. ABDOMEN: Obese. EXTREMITIES: No clubbing or cyanosis. BODS DEVELOPER: Awake, alert, and oriented X3. Cranial nerves 2 to 7 intact. There is no fasciculation or atrophy. noted. No focal deficits observed. IMPRESSION: 1. Obstructive sleep apnea-hypopnea syndrome. Patient demonstrated practically 100% compliance with treatment benefitting from treatment. 2. History of atrial fibrillation. No recent episodes of cardiac arrhythmia. 3. Hypertension. 4. History of iron deficiency in the past. 5. Hypothyroidism. 6. Psoriasis. 7. Status post cholecystectomy. 8. Status post total hysterectomy. PLAN: 1. Patient will continue to use CPAP equipment every night for the whole night. 2. Watching and losing weight. 3. Sleep hygiene with regular time in bed for at least 7-1/2 hours. 4. Precautions related to driving. No driving if any sleepiness. 5. I will maintain prescriptions for CPAP supplies including mask, tube, filters. Thank you very much for allowing me to participate in management of your patient. Sincerely, Olvin Wilder MD, PhD, FAASM Diplomat of [place] [employer] Board of Internal Medicine Smasher of [facility] [employer] MMODL / SAMMIE: [id number] /
== END | disposition home or self-care (01) ==
LOC: SLEEP 10:27
PROVIDERS: ATTEND Internal Medicine
DX: G47.33 Obstructive sleep apnea (adult) (pediatric) (principal); I10 Essential (primary) hypertension; E03.9 Hypothyroidism, unspecified; Z86.79 Personal history of other diseases of the circulatory system; Z86.2 Personal history of diseases of the blood and blood-forming organs and certain disorders involving the immune mechanism; L40.9 Psoriasis, unspecified; Z90.49 Acquired absence of other specified parts of digestive tract; Z90.710 Acquired absence of both cervix and uterus; Z79.899 Other long term (current) drug therapy

== ENCOUNTER → 2019-10-20 | Outpatient (CLI) | payer MEDICARE ==
--- NOTE | 2019-10-20 11:16 | SFUN ---
SLEEP CENTER FOLLOW UP NOTE DATE OF SERVICE: 10/20/2019. A 74-year-old lady who has been followed in the Sleep Center for treatment of obstructive sleep apnea-hypopnea syndrome. Patient continued to use her CPAP equipment every night, basically sleeps well with the machine, recently received her supplies, mask, tube, filters. No snoring. [place] Sleepiness Scale today is 7. MEDICATIONS: Tikosyn, metoprolol, spironolactone, Apixaban, . levothyroxine, losartan. PHYSICAL EXAM: Patient in no distress, BP 122/66, HR 58, RR 16, height 5, 4, weight 283. Patient lost 5 pounds since previous visit. Oxygen saturation at room air 96%. OROPHARYNX: Low position of soft palate. Mallampati III. ABDOMEN: Obese. NECK: Supple, no JVD. Thyroid is not palpable. LUNGS: Clear to percussion and to auscultation. Good air exchange. No wheezing or rhonchi. HEART: S1, S2 regular. No murmurs, gallops, or rubs. EXTREMITIES: No clubbing or cyanosis. NEWS COMMENTATOR: Awake, alert, and oriented X3. Cranial nerves 2 to 7 intact. There is no fasciculation or atrophy. noted. No focal deficits observed. I checked patient's CPAP unit. CPAP pressure is 8 cm of water. Usage is 30/30 nights and 22/30 nights for more than 4 hours with average usage 4.9 hours per night. Leak is 31 L/minute which is slightly increased, but apnea-hypopnea index total normal 0.9. IMPRESSION: 1. Obstructive sleep apnea-hypopnea syndrome. Patient demonstrated good compliance with treatment, normal respiration on CPAP treatment. 2. History of atrial fibrillation. No recent episodes. 3. Hypertension. 4. Hypothyroidism. 5. Psoriasis. 6. History of iron-deficiency in the past. 7. Status post total hysterectomy. 8. Status post cholecystectomy. PLAN: 1. Patient will continue to use PAP equipment every night for the whole night. 2. Sleep hygiene with regular time in bed for at least 7-1/2 to 8 hours. 3. Precautions related to driving. No driving if feeling sleepiness. 4. I will maintain all necessary prescription for PAP supplies including mask, tube, filters. 5. Watching weight. 6. No driving if feeling sleepiness. 7. Follow-up visit in 6 months or earlier if patient has any problems. Thank you very much for allowing me to participate in the management of your patient. Sincerely, Olvin Wilder MD, PhD, FAASM Diplomat of [place] [employer] Specialties [employer] Board of Internal Medicine Genetics Teacher of [facility] [place] MMODL / JOSEPHN: [id number] /
== END | disposition home or self-care (01) ==
LOC: SLEEP 09:50
PROVIDERS: ATTEND Internal Medicine
DX: G47.33 Obstructive sleep apnea (adult) (pediatric) (principal); Z99.89 Dependence on other enabling machines and devices; I10 Essential (primary) hypertension; E03.9 Hypothyroidism, unspecified; Z90.710 Acquired absence of both cervix and uterus; Z90.49 Acquired absence of other specified parts of digestive tract; L40.9 Psoriasis, unspecified; Z86.79 Personal history of other diseases of the circulatory system

== ENCOUNTER → 2020-04-26 | Outpatient (CLI) | payer MEDICARE ==
--- NOTE | 2020-04-26 20:23 | SFUN ---
SLEEP CENTER FOLLOW UP NOTE DATE OF SERVICE: 04/26/2020 This patient is a 74-year-old lady who has been followed in Sleep Center for treatment of obstructive sleep apnea-hypopnea syndrome. Patient continues to use her CPAP equipment every night for the whole night. According to her , she does not snore and she sleeps quietly. [place] Sleepiness Scale today is 5, which is normal. I checked her CPAP unit. CPAP pressure is 8 cm of water. Usage is 100% of nights and 26/30 nights for more than 4 hours. Average usage 4.7 hours per night. Leak is 28 L/minute. Apnea-hypopnea index is 0.8, which is perfect. MEDICATIONS: 1. Tikosyn 125 mcg twice a day. 2. Metoprolol 50 mg twice a day. 3. Eliquis 5 mg twice a day. 4. Synthroid 112 mcg once a day. 5. Losartan 100 mg once a day. PHYSICAL EXAMINATION: GENERAL: A pleasant patient in no distress. VITAL SIGNS: BP 126/69, HR 65, RR 15, height 5 feet 4 inches, weight 284.4, temperature 97.9, oxygen saturation at room air 96%. HEENT: PERRLA, EOMI. Evaluation of oropharynx showed tongue protrudes midline. NECK: Supple. No JVD. Thyroid is not palpable. LUNGS: Clear to percussion and to auscultation. Good air exchange. No wheezing or rhonchi. HEART: S1, S2 regular. No murmurs, gallops or rubs. ABDOMEN: Obese. EXTREMITIES: No clubbing or cyanosis. LITERACY TUTOR: Awake, alert, and oriented X3. Cranial nerves 2 to 7 intact. There is no fasciculation or atrophy. noted. No focal deficits observed. IMPRESSION: 1. Obstructive sleep apnea-hypopnea syndrome. Patient demonstrated great compliance with treatment, benefitting from treatment. 2. Hypertension. 3. History of atrial fibrillation. 4. Obesity. 5. Hypothyroidism. 6. History of psoriasis. 7. Status post total hysterectomy. 8. Status post cholecystectomy. PLAN: 1. Patient will continue to use PAP equipment every night for the whole night. 2. Sleep hygiene with regular time in bed for at least 7-1/2 to 8 hours. 3. Precautions related to driving. No driving if feeling sleepiness. 4. I will maintain all necessary prescription for PAP supplies including mask, tube, filters. 5. Watching weight. 6. No driving if feeling sleepiness. 7. Follow-up visit in 6 months or earlier if patient has any problems. Thank you very much for allowing me to participate in the management of your patient. Sincerely, Olvin Wilder MD, PhD, FAASM Diplomat of [place] [employer] of Medical Specialties [place] Board of Internal Medicine Shuttle Inspector of [facility] [place] MMODL / JOSEPHN: [id number] /
== END | disposition home or self-care (01) ==
LOC: SLEEP 09:46
PROVIDERS: ATTEND Internal Medicine
DX: G47.33 Obstructive sleep apnea (adult) (pediatric) (principal); I10 Essential (primary) hypertension; Z86.79 Personal history of other diseases of the circulatory system; Z87.2 Personal history of diseases of the skin and subcutaneous tissue; Z90.710 Acquired absence of both cervix and uterus; Z90.49 Acquired absence of other specified parts of digestive tract; Z79.01 Long term (current) use of anticoagulants; Z79.899 Other long term (current) drug therapy; Z99.89 Dependence on other enabling machines and devices

== ENCOUNTER → 2020-11-01 | Outpatient (CLI) | payer MEDICARE ==
--- NOTE | 2020-11-01 12:21 | SFUN ---
SLEEP CENTER FOLLOW UP NOTE DATE OF SERVICE: 11/01/2020 75-year-old lady has been followed in Sleep Center for treatment of obstructive sleep apnea-hypopnea syndrome. Patient continued to use her CPAP equipment. No snoring with the machine. [place] Sleepiness Scale today is 8. She is getting goal for CPAP supplies in time. The [employer] company called her to remind about necessity to replace some supplies. I checked her CPAP unit. Air filter needs to be changed. Pressure is 8 cm of water. Usage is 30/30 nights and 25/30 nights for more than 4 hours, average 4.8 hours per night. Leak is 26 L/minute which is slightly high. Apnea-hypopnea index is only 0.3, which is absolutely perfect. The patient feels better after she was started on new medication for psoriasis. [place] Sleepiness Scale is 8. MEDICATIONS: Tikosyn 125 mcg 2 a day, diltiazem 120 mg once a day, Otezla 30 mg 2 a day, Eliquis 5 mg twice a day, Dupixent 300 mg once a week, folic acid 400 mg once a day, Synthroid 112 mcg once a day, losartan 100 mg once a day. PHYSICAL EXAM: During physical exam patient in no distress. BP 142/84, HR 74, RR 16, height 5 feet 4 inches, weight 282 pounds which is 2 pounds less than during the previous visit. BMI 48.4, temperature 98.2, oxygen saturation at room air 95%. HEENT: PERRLA, EOMI, evaluation of oropharynx showed tongue protrudes midline. NECK: Supple, no JVD. Thyroid is not palpable. LUNGS: Clear to percussion and to auscultation. Good air exchange. No wheezing or rhonchi. HEART: S1, S2 regular. No murmurs, gallops, or rubs. ABDOMEN: Obese. Soft and nontender. Bowel sounds are present. No organomegaly appreciated. EXTREMITIES: No clubbing or cyanosis. CONVENTIONAL MORTGAGE UNDERWRITER: Awake, alert, and oriented X3. Cranial nerves 2 to 7 intact. There is no fasciculation or atrophy. noted. No focal deficits observed. IMPRESSION: 1. Obstructive sleep apnea-hypopnea syndrome. Patient demonstrated good compliance with treatment. Normal respiration on CPAP therapy. 2. Hypertension. 3. History of atrial fibrillation. 4. Obesity. 5. Hypothyroidism. 6. History of psoriasis. 7. Status post total hysterectomy. 8. Status post cholecystectomy. PLAN: 1. Replace air filter. 2. Patient will continue to use PAP equipment every night for the whole night. 3. Sleep hygiene with regular time in bed for at least 7-1/2 to 8 hours. 4. Precautions related to driving. No driving if feeling sleepiness. 5. I will maintain all necessary prescription for PAP supplies including mask, tube, filters. 6. Watching weight. 7. Follow-up visit in 6 months or earlier if patient has any problems. Thank you very much for allowing me to participate in management of your patient. Sincerely, Olvin Wilder MD, PhD, FAASM Diplomat of [place] [employer] Sleep Medicine Board of [place] Board of Internal Medicine Armored Car Messenger of [facility] [place] MMMEAGHANL / JOSEPHN: [id number] /
== END ==
LOC: SLEEP 11:12
PROVIDERS: ATTEND Internal Medicine
DX: G47.33 Obstructive sleep apnea (adult) (pediatric) (principal); I10 Essential (primary) hypertension; I48.91 Unspecified atrial fibrillation; E66.9 Obesity, unspecified; E03.9 Hypothyroidism, unspecified; Z90.49 Acquired absence of other specified parts of digestive tract; Z90.711 Acquired absence of uterus with remaining cervical stump; Z87.2 Personal history of diseases of the skin and subcutaneous tissue; Z68.42 Body mass index [BMI] 45.0-49.9, adult; Z99.89 Dependence on other enabling machines and devices; Z79.899 Other long term (current) drug therapy

== ENCOUNTER → 2021-08-21 | Outpatient (CLI) | payer MEDICARE ==
[2021-08-21 15:24] LABS: African American GFR (CKD) 88.5 (60.0-200.0); Anion Gap 11.5 mmol/L (10.00-18.00); BUN/Creat Ratio 16.25 Ratio (12.00-20.00); Blood Urea Nitrogen 12.4 mg/dL (9.0-27.0); Calcium 9.6 mg/dL (8.7-10.3); Carbon Dioxide 26.7 mmol/L (20.0-27.5); Non-African American GFR(CKD) 76.4 (60.0-200.0); Potassium 4.3 mmol/L (3.5-5.5)
== END | disposition home or self-care (01) ==
LOC: LABWHC1 09:14
PROVIDERS: ATTEND Nurse Practitioner
DX: I48.91 Unspecified atrial fibrillation (principal)
CPT/HCPCS: 36415; 80048

== ENCOUNTER → 2021-10-30 | Outpatient (CLI) | payer MEDICARE ==
--- NOTE | 2021-10-30 11:24 | P.PN ---
Subjective DATE: 10/30/2021 FOLLOW UP VISIT. Patient with obstructive sleep apnea hypopnea syndrome return to sleep center for follow-up visit. Information from previous visit have been reviewed. Patient is using PAP equipment every night for the whole night, getting PAP supplies in time. The patient does not have significant problems with the mask, PAP unit and humidification. [place] sleepiness scale is 5. I checked information from PAP unit. PAP unit pressure 8 cm H2O. Usage is 100 % for more then 4 hours, average 5.2 hours per night. Leak is 24 l/m, which is in acceptable range. Apnea Hypopnea Index is 0.3, which is normal. MEDICATIONS:1. Eliquis 5 mg twice a day 2. Metoprolol 50 mg once a day 3. Ticosyn 125 g twice a day 4. Synthroid 112 g once a day 5. Losartan 100 mg once a day During physical exam: GENERAL: A pleasant patient without any distress. VITAL SIGNS: BP 138/61, HR 77, RR 18 , weight 272.6, temperature 96.8, oxygen saturation at room air 96 % . HEENT: PERRLA, EOMI.low position of soft palate . NECK: Supple. No JVD. LUNGS: Clear to percussion and to auscultation. Good air exchange. No wheezing or rhonchi. HEART: S1, S2 regular. ABDOMEN: Soft and nontender. Obese EXTREMITIES: No clubbing or cyanosis. CHAINSTITCH HEMMER: Awake, alert, and oriented x3. No focal deficit. Impressions: 1. Obstructive sleep apnea-hypopnea syndrome. Patient demonstrated great compliance with treatment, benefiting from treatment. 2. Obesity. 3. History of atrial fibrillation. 4. Hypertension. 5. Hypothyroidism. 6. History of psoriasis. 7. Status post total hysterectomy. 8. Status post cholecystectomy. Plan: 1. Continue using PAP equipment every night for the whole night. 2. To change air filter at least 1-2 times per month. 3. PAP unit should stay lower then position of the head. 4. Advised patient to remove all remaining water from humidifier canister daily and make it dry after each usage. Refill canister with fresh distilled water before each usage. 5. Sleep hygiene with regular time in bed for at least 8 hours. 6. Precautions related to driving. No driving if feel any sleepiness. 7. I will maintain prescription for PAP supplies including mask, tube, filters. 8. Follow up visit in 6 months or earlier if patient has any problems. 9. Watching weight. Thank you very much for allowing me to participate in the management of your patient. Olvin Wilder MD, PhD, FAASM. Diplomat of [employer], Sleep Medicine Board by [employer] Lead Custodian of [facility] [place]
== END ==
LOC: SLEEP 10:38
PROVIDERS: ATTEND Internal Medicine
DX: G47.33 Obstructive sleep apnea (adult) (pediatric) (principal); E66.9 Obesity, unspecified; Z86.79 Personal history of other diseases of the circulatory system; I10 Essential (primary) hypertension; E03.9 Hypothyroidism, unspecified; Z90.710 Acquired absence of both cervix and uterus; Z90.49 Acquired absence of other specified parts of digestive tract; Z87.2 Personal history of diseases of the skin and subcutaneous tissue; Z99.89 Dependence on other enabling machines and devices; Z79.82 Long term (current) use of aspirin; Z79.890 Hormone replacement therapy
CPT/HCPCS: 99212

== ENCOUNTER → 2022-11-26 | Outpatient (CLI) | payer MEDICARE ==
--- NOTE | 2022-11-26 11:29 | P.PN ---
Subjective DATE: 11/26/2022 FOLLOW UP VISIT. Patient with obstructive sleep apnea hypopnea syndrome return to sleep center for follow-up visit. Information from previous visit have been reviewed. Patient is using PAP equipment every night for the whole night, getting PAP supplies in time. The patient does not have significant problems with the mask, PAP unit and humidification. [place] sleepiness scale is 3, which is normal. I checked information from PAP unit. PAP unit pressure 8 cm H2O. Usage is 100 % of nights average 3.5 hours per night. Leak is 26.4 l/m, which is in acceptable range. Apnea Hypopnea Index is 0.8, which is normal. MEDICATIONS:1. Losartan 100 mg once a day 2. Spironolactone 25 mg 1-2 times a day 3. Eliquis 5 mg twice a day 4. Lovastatin 10 mg once a day During physical exam: GENERAL: A pleasant patient without any distress. VITAL SIGNS: BP 155/63, HR 68, RR 16, weight 270.8, temperature 97.6, oxygen saturation at room air 95 % . HEENT: PERRLA, EOMI.low position of soft palate, Mallapati 3 . NECK: Supple. No JVD. LUNGS: Clear to percussion and to auscultation. Good air exchange. No wheezing or rhonchi. HEART: S1, S2 regular. ABDOMEN: Soft and nontender. Slightly obese EXTREMITIES: No clubbing or cyanosis. GROUND CREWMAN MISSION SUPPORT: Awake, alert, and oriented x3. No focal deficit. Impressions: 1. Obstructive sleep apnea-hypopnea syndrome. Patient demonstrated borderline compliance with treatment, benefiting from treatment. 2. History of atrial fibrillation. 3. Obesity. 4. Hypertension. 5. Hypothyroidism. 6. History of psoriasis. 7. Status post cholecystectomy. 8. Status post hysterectomy. Plan: 1. Continue using PAP equipment every night for the whole night. 2. To change air filter at least 1-2 times per month. 3. PAP unit should stay lower then position of the head. 4. Advised patient to remove all remaining water from humidifier canister daily and make it dry after each usage. Refill canister with fresh distilled water before each usage. 5. Sleep hygiene with regular time in bed for at least 8 hours. 6. Precautions related to driving. No driving if feel any sleepiness. 7. I will maintain prescription for PAP supplies including mask, tube, filters. 8. Watching and losing weight. 9. Follow up visit in 6 months or earlier if patient has any problems. Thank you very much for allowing me to participate in the management of your patient. Olvin Wilder MD, PhD, FAASM. Diplomat of [employer], Sleep Medicine Board by [employer] Senior Benefits Specialist of [facility] [place]
== END ==
LOC: 3 N SLEEP 10:41
PROVIDERS: ATTEND Internal Medicine
DX: G47.33 Obstructive sleep apnea (adult) (pediatric) (principal); E66.9 Obesity, unspecified; E03.9 Hypothyroidism, unspecified; I10 Essential (primary) hypertension; I48.91 Unspecified atrial fibrillation; L40.9 Psoriasis, unspecified; Z79.01 Long term (current) use of anticoagulants; Z79.899 Other long term (current) drug therapy; Z90.49 Acquired absence of other specified parts of digestive tract; Z90.710 Acquired absence of both cervix and uterus; Z99.89 Dependence on other enabling machines and devices; Z79.890 Hormone replacement therapy
CPT/HCPCS: 99212

== ENCOUNTER → 2023-06-17 | Outpatient (CLI) | payer MEDICARE ==
--- NOTE | 2023-06-17 11:07 | P.PN ---
Subjective DATE: 06/17/2023 FOLLOW UP VISIT. Patient with obstructive sleep apnea hypopnea syndrome return to sleep center for follow-up visit. Information from previous visit have been reviewed. Patient is using PAP equipment every night for the whole night, getting PAP supplies in time. The patient does not have significant problems with the mask, PAP unit and humidification. [place] sleepiness scale is 6, which is normal . I checked information from PAP unit. PAP unit pressure 8 cm H2O. Usage is 100% , average 3.6 hours per night. Leak is borderline 24 l/m. Apnea Hypopnea Index is 0.6, which is normal. MEDICATIONS:1. Eliquis 5 mg twice a day 2. Synthroid 112 mcg once a day 3. Spironolactone 12.5 mg once a day 4. Rosuvastatin 10 mg once a day 5. Losartan 100 mg once a day 6. Metoprolol 50 mg 1-1/2 tablets once a day During physical exam: GENERAL: A pleasant patient without any distress. VITAL SIGNS: Please see below. HEENT: PERRLA, EOMI.low position of soft palate, Mallapati 3 . NECK: Supple. No JVD. LUNGS: Clear to percussion and to auscultation. Good air exchange. No wheezing or rhonchi. HEART: S1, S2 irregular . ABDOMEN: Soft and nontender. Obese EXTREMITIES: No clubbing or cyanosis. QUALITY PROJECT MANAGER: Awake, alert, and oriented x3. No focal deficit. Impressions: 1. Obstructive sleep apnea-hypopnea syndrome. Patient demonstrated great compliance with treatment, benefiting from treatment. 2. Atrial fibrillation. 3. Obesity, BMI 50.3, patient increased weight on 14 pounds comparing to the previous visit. 4. Hypertension. 5. Hypothyroidism. 6. Hyperlipidemia. 7. History of psoriasis. 8. Status post cholecystectomy. 9. Status post hysterectomy. 10. Status post art model inserted. Plan: 1. Continue using PAP equipment every night for the whole night. 2. To change air filter at least 1-2 times per month. 3. PAP unit should stay lower then position of the head. 4. Advised patient to remove all remaining water from humidifier canister daily and make it dry after each usage. Refill canister with fresh distilled water before each usage. 5. Sleep hygiene with regular time in bed for at least 8 hours. 6. Precautions related to driving. No driving if feel any sleepiness. 7. I will maintain prescription for PAP supplies including mask, tube, filters. 8. Follow up visit in 6 months or earlier if patient has any problems. 9. Watching and losing weight. Thank you very much for allowing me to participate in the management of your patient. Olvin Wilder MD, PhD, FAASM. Diplomat of [employer], Sleep Medicine Board by [employer] Transitional Living Specialist of [facility] [place] Objective - Vital Signs Vital signs: Vital Signs Temp 97.9 F 06/17/23 10:51 Pulse 78 06/17/23 10:51 Resp 16 06/17/23 10:51 BP 92/63 06/17/23 10:51 Pulse Ox 95 06/17/23 10:51 FiO2 Intake & Output 06/16/23 06/17/23 06/17/23 18:59 06:59 18:59 Weight 128.82 kg
[2023-06-17 11:16] VITALS: BP 92/63; PULSE 78; RESP 16; TEMP 97.9
== END ==
LOC: 3 N SLEEP 10:39
PROVIDERS: ATTEND Internal Medicine
DX: G47.33 Obstructive sleep apnea (adult) (pediatric) (principal); E66.9 Obesity, unspecified; I10 Essential (primary) hypertension; E78.5 Hyperlipidemia, unspecified; E03.9 Hypothyroidism, unspecified; I48.91 Unspecified atrial fibrillation; Z68.43 Body mass index [BMI] 50.0-59.9, adult; Z79.01 Long term (current) use of anticoagulants; Z79.890 Hormone replacement therapy; Z79.899 Other long term (current) drug therapy; Z90.49 Acquired absence of other specified parts of digestive tract; Z90.710 Acquired absence of both cervix and uterus; Z95.9 Presence of cardiac and vascular implant and graft, unspecified; Z99.89 Dependence on other enabling machines and devices; Z87.2 Personal history of diseases of the skin and subcutaneous tissue
CPT/HCPCS: 99212

== ENCOUNTER → 2024-01-06 | Outpatient (CLI) | payer MEDICARE ==
[2024-01-06 11:17] VITALS: BP 119/75; PULSE 73; RESP 18; TEMP 97.7
--- NOTE | 2024-01-06 11:45 | P.PROGSL ---
Subjective DATE: 01/06/2024 FOLLOW UP VISIT. Patient with obstructive sleep apnea hypopnea syndrome return to sleep center for follow-up visit. Information from previous visit have been reviewed. Patient is using PAP equipment every night for the whole night, getting PAP supplies in time. The patient does not have significant problems with the mask, PAP unit and humidification. [place] sleepiness scale is 7, which is normal. I checked information from PAP unit. PAP unit pressure 8 cm H2O. Usage is 100% for more then 4 hours, average 4 hours per night. Leak is 36 l/m, which is in acceptable range. Apnea Hypopnea Index is 1.3, which is normal. MEDICATIONS have been reviewed, please see below. During physical exam: GENERAL: A pleasant patient without any distress. VITAL SIGNS: Please see below, weight is 276.8 lbs. HEENT: PERRLA, EOMI.low position of soft palate, Mallapati 3. NECK: Supple. No JVD. LUNGS: Clear to percussion and to auscultation. Good air exchange. No wheezing or rhonchi. HEART: S1, S2 regular. ABDOMEN: Soft and nontender. Obese EXTREMITIES: No clubbing or cyanosis. RN NEW GRAD: Awake, alert, and oriented x3. No focal deficit. Impressions: 1. Obstructive sleep apnea-hypopnea syndrome. Patient demonstrated good compliance with treatment, benefiting from treatment. 2. Obesity. 3. History of atrial fibrillation. 4. Hypertension. 5. Hypothyroidism. 6. Hyperlipidemia. 7. History of psoriasis. 8. Status post hysterectomy. 9. Status post cholecystectomy. Plan: 1. Continue using PAP equipment every night for the whole night. 2. Sleep hygiene with regular time in bed for at least 7.5-8 hours 3. PAP unit should stay lower then position of the head. 4. Advised patient to remove all remaining water from humidifier canister daily and make it dry after each usage. Refill canister with fresh distilled water before each usage. 5. Watching weight. 6. Precautions related to driving. No driving if feel any sleepiness. 7. I will maintain prescription for PAP supplies including mask, tube, filters. 8. Follow up visit in 8 months or earlier if patient has any problems. Thank you very much for allowing me to participate in the management of your patient. Olvin Wilder MD, PhD, FAASM. Diplomat of [place], Sleep Medicine Board by [employer] Dies of [facility] [place] Objective - Vital Signs Vital Signs: Vital Signs Temp 97.7 F 01/06/24 11:12 Pulse 73 01/06/24 11:12 Resp 18 01/06/24 11:12 BP 119/75 01/06/24 11:12 Pulse Ox 94 L 01/06/24 11:12 FiO2 Intake & Output 01/05/24 01/06/24 01/06/24 18:59 06:59 18:59 Weight 125.418 kg Home Medications: Home Medications Medication Instructions Recorded Confirmed Type Apixaban [Eliquis] 5 mg PO BID 07/22/17 01/06/24 History Calcium Carbonate [Calcium] 1,200 mg PO HS 07/22/17 01/06/24 History Dupilumab [Dupixent] 300 mg SQ TH 07/22/17 04/12/18 History Estrogens, Conjugated [Premarin] 1.25 mg PO HS 07/22/17 04/12/18 History Folic Acid 400 mg PO DAILY@1500 07/22/17 01/06/24 History Levothyroxine Sodium 112 mcg PO HS 07/22/17 01/06/24 History Ascorbic Acid [Vitamin C] 500 mg PO DAILY@1500 04/12/18 01/06/24 History Flaxseed Oil 1,200 mg PO DAILY 04/12/18 04/12/18 History Losartan [Cozaar] 100 mg PO DAILY 04/12/18 01/06/24 History Cephalexin [Keflex] 500 mg PO TID #21 cap 04/16/18 Rx Dofetilide [Tikosyn] 125 mcg PO Q12HR #60 cap 04/16/18 Rx Magnesium Oxide [Mag-Ox] 400 mg PO BID #60 tablet 04/16/18 01/06/24 Rx Cholecalciferol (Vitamin D3) 125 mcg PO DAILY 01/06/24 01/06/24 History [Vitamin D3 (125 MCG = 5,000 IU)] Metoprolol Tartrate [Lopressor] 50 mg PO DAILY 01/06/24 01/06/24 History Rosuvastatin Calcium 10 mg PO DAILY 01/06/24 01/06/24 History Spironolactone 25 mg PO DAILY 01/06/24 01/06/24 History Tralokinumab-Ldrm [Adbry] 300 mg SQ DIRECTED 01/06/24 01/06/24 History
== END ==
LOC: 3 N SLEEP 10:48
PROVIDERS: ATTEND Internal Medicine
CPT/HCPCS: 99212

== ENCOUNTER → 2024-08-31 | Outpatient (CLI) | payer MEDICARE ==
[2024-08-31 11:19] VITALS: BP 115/81; PULSE 88; RESP 20; TEMP 97.8
--- NOTE | 2024-08-31 16:06 | P.PROGSL ---
Subjective DATE: 08/31/2024 FOLLOW UP VISIT. Patient with obstructive sleep apnea hypopnea syndrome return to sleep center for follow-up visit. Information from previous visit have been reviewed. Patient is using PAP equipment every night for the whole night, getting PAP supplies in time. The patient does not have significant problems with the mask, PAP unit and humidification. [place] sleepiness scale is 9, which is borderline. I checked information from PAP unit. PAP unit pressure 8 cm H2O. Usage is 100% for more then 4 hours, average 3.4 hours per night. Leak is 32 l/m, which is in acceptable range. Apnea Hypopnea Index is 1.5, which is normal. MEDICATIONS have been reviewed, please see below. During physical exam: GENERAL: A pleasant patient without any distress. VITAL SIGNS: Please see below, weight is [] lbs. HEENT: PERRLA, EOMI.low position of soft palate, Mallapati [] . NECK: Supple. No JVD. LUNGS: Clear to percussion and to auscultation. Good air exchange. No wheezing or rhonchi. HEART: S1, S2 regular. ABDOMEN: Soft and nontender.[] EXTREMITIES: No clubbing or cyanosis. ELECTRICIAN UNDERGROUND: Awake, alert, and oriented x3. No focal deficit. Impressions: 1. Obstructive sleep apnea-hypopnea syndrome. Patient demonstrated good compliance with treatment, benefiting from treatment. 2. History of atrial fibrillation. 3. Hypertension. 4. Hypothyroidism. 5. Hyperlipidemia. 6. History of psoriasis. 7. Status post cholecystectomy. 8. Status post hysterectomy. 9. Status post recent bilateral cataract surgery. Plan: 1. Continue using PAP equipment every night for the whole night. 2. Sleep hygiene with regular time in bed for at least 7.5-8 hours 3. PAP unit should stay lower then position of the head. 4. Advised patient to remove all remaining water from humidifier canister daily and make it dry after each usage. Refill canister with fresh distilled water before each usage. 5. Watching weight. 6. Precautions related to driving. No driving if feel any sleepiness. 7. I will maintain prescription for PAP supplies including mask, tube, filters. 8. Follow up visit in 8 months or earlier if patient has any problems. Thank you very much for allowing me to participate in the management of your patient. Olvin Wilder MD, PhD, FAASM. Diplomat of [employer], Sleep Medicine Board by [employer] Envelope Folder of [facility] [place] Objective - Vital Signs Vital Signs: Vital Signs Temp 97.8 F 08/31/24 11:18 Pulse 88 08/31/24 11:18 Resp 20 08/31/24 11:18 BP 115/81 08/31/24 11:18 Pulse Ox 95 08/31/24 11:18 FiO2 Intake & Output 08/30/24 08/31/24 08/31/24 18:59 06:59 18:59 Weight 125.248 kg Home Medications: Home Medications Medication Instructions Recorded Confirmed Type Apixaban [Eliquis] 5 mg PO BID 07/22/17 01/06/24 History Calcium Carbonate [Calcium] 1,200 mg PO HS 07/22/17 01/06/24 History Dupilumab [Dupixent] 300 mg SQ TH 07/22/17 04/12/18 History Estrogens, Conjugated [Premarin] 1.25 mg PO HS 07/22/17 04/12/18 History Folic Acid 400 mg PO DAILY@1500 07/22/17 01/06/24 History Levothyroxine Sodium 112 mcg PO HS 07/22/17 01/06/24 History Ascorbic Acid [Vitamin C] 500 mg PO DAILY@1500 04/12/18 01/06/24 History Flaxseed Oil 1,200 mg PO DAILY 04/12/18 04/12/18 History Losartan [Cozaar] 100 mg PO DAILY 04/12/18 01/06/24 History Cephalexin [Keflex] 500 mg PO TID #21 cap 04/16/18 Rx Dofetilide [Tikosyn] 125 mcg PO Q12HR #60 cap 04/16/18 Rx Magnesium Oxide [Mag-Ox] 400 mg PO BID #60 tablet 04/16/18 01/06/24 Rx Cholecalciferol (Vitamin D3) 125 mcg PO DAILY 01/06/24 01/06/24 History [Vitamin D3 (125 MCG = 5,000 IU)] Metoprolol Tartrate [Lopressor] 50 mg PO DAILY 01/06/24 01/06/24 History Rosuvastatin Calcium 10 mg PO DAILY 01/06/24 01/06/24 History Spironolactone 25 mg PO DAILY 01/06/24 01/06/24 History Tralokinumab-Ldrm [Adbry] 300 mg SQ DIRECTED 01/06/24 01/06/24 History
== END ==
LOC: 3 N SLEEP 10:42
PROVIDERS: ATTEND Internal Medicine
DX: G47.33 Obstructive sleep apnea (adult) (pediatric) (principal); I10 Essential (primary) hypertension; E03.9 Hypothyroidism, unspecified; E78.5 Hyperlipidemia, unspecified; Z87.2 Personal history of diseases of the skin and subcutaneous tissue; Z90.49 Acquired absence of other specified parts of digestive tract; Z90.710 Acquired absence of both cervix and uterus; Z98.890 Other specified postprocedural states; Z99.89 Dependence on other enabling machines and devices
CPT/HCPCS: 99212

== ENCOUNTER → 2024-08-31 | Outpatient (CLI) | payer MEDICARE | END | disposition home or self-care (01) | LOC: LABWHC1 11:49 | PROVIDERS: ATTEND Nurse Practitioner Adult Health | DX: E05.90 Thyrotoxicosis, unspecified without thyrotoxic crisis or storm (principal) | CPT/HCPCS: 36415; 84439; 84443 ==